=== PATIENT | female | born 1945 | race African-American/Black ===

== ENCOUNTER 2022-04-15 23:00 | Emergency (ER) | payer MEDICARE, BC ==
[~2022-04-15] VITALS: Ht 162.6 cm; Wt 72.0 kg
[~2022-04-15 23:00] MED LIST: ALPHA LIPOIC A200 MG PO; AMOXICILLIN500 MG PO; AMOXIL500 MG OR; ATACAND HCT1 TA1 OR; L-ARGININE500 MG PO; NAPROXEN250 MG PO; PROLIA60 MG/ML SC
[2022-04-15 23:40] VITALS: BP 158/71
[2022-04-15 23:45] VITALS: BP 166/90
[2022-04-15] MEDS ORDERED: LIPITOR10 M1 PO (23:55)
[2022-04-16] VITALS (11 sets, daily range): BP systolic 129–168; BP diastolic 63–90
[2022-04-16 00:43] LABS: BASO% 0.5 % (0-3); EOS% 2.4 % (0-8); HEMOGLOBIN 13.5 g/dl (12.0-16.0); IMMATURE GRANULOCYTES 0.3 % (0.0-5.0); LYMPH% 23.4 % (15-41); MEAN CELL VOLUME 93.9 fL CALC (80.0-100.0); MEAN CORPUSCULAR HGB 29.5 pG CALC (26.0-32.0); MEAN CORPUSCULAR HGB CONC 31.4 g/dL CAL (32.0-36.0); MONO% 10.3 % (2-13); NEUT# 3.93 thou/uL (2.00-7.15); NEUT% 63.1 % (42-76); RED BLOOD COUNT 4.58 mill/uL (4.20-5.60); RED CELL DISTRI WIDTH 13.1 % (11.5-15.5)
[2022-04-16 00:55] LABS: ALBUMIN 4.6 g/dL (3.2-5.0); ALKALINE PHOSPHATASE 64 u/l (38-126); ANION GAP 10 (6-22 (CALC)); BUN 12 mg/dL (8-23); BUN/CREATININE RATIO 13 (12-20 (CALC)); CARBON DIOXIDE 30 mmol/l (22-30); CHLORIDE 100 mmol/l (95-108); GFR FOR AFR.AMER. > 60 ML/MIN (>=60 (CALC)); GFR OTHER RACES 54 ML/MIN (>=60 (CALC)); MAGNESIUM 2.1 mg/dL (1.6-2.3); SODIUM 136 mmol/l (137-146); TOTAL PROTEIN 7.6 g/dL (6.3-8.2)
[2022-04-16 01:07] LABS: BILIRUBIN, TOTAL 0.3 mg/dL (0.02-1.3); SGOT/AST 33 u/l (9-36)
[2022-04-16 01:53] LABS: URINE BILIRUBIN - DIPSTICK NEGATIVE (NEGATIVE); URINE BLOOD DIPSTICK NEGATIVE (NEGATIVE); URINE COLOR YELLOW; URINE GLUCOSE - DIPSTICK NEGATIVE (NEGATIVE); URINE KETONE NEGATIVE (NEGATIVE); URINE LEUK ESTERASE NEGATIVE (NEGATIVE); URINE PH 6.5 (4.5-8.0); URINE PROTEIN - DIPSTICK NEGATIVE (NEG-TRACE); URINE SPECIFIC GRAVITY 1.015; URINE UROBILINOGEN - DIPSTICK 0.2 E.U./dL (0.2)
[2022-04-16 01:54] LABS: URINE NITRITE - DIPSTICK NEGATIVE (Negative)
== END 2022-04-16 02:53 | disposition home or self-care (01) ==
LOC: ED 23:00
PROVIDERS: Family Medicine
DX: S00.03XA Contusion of scalp, initial encounter (principal); S20.211A Contusion of right front wall of thorax, initial encounter; E78.00 Pure hypercholesterolemia, unspecified; W18.30XA Fall on same level, unspecified, initial encounter; Y92.009 Unspecified place in unspecified non-institutional (private) residence as the place of occurrence of the external cause